=== PATIENT | female | born 1950 | race Caucasian/White ===

== ENCOUNTER 2017-02-18 08:00 | Day surgery (SDC) | payer MEDICARE ==
[2017-02-18] MEDS ORDERED: Lactated Ringer's 500 ML IV ONE (08:28)
[2017-02-18] MEDS ORDERED: Propofol 10 mg/ml Inj (20 ML) ONE (09:44)
[2017-02-18] MEDS ORDERED: Midazolam 2 MG/2 ML VIAL ONE (09:51)
[2017-02-18 10:10] VITALS: TEMP 96.9; O2SAT 97
[2017-02-18 10:24] VITALS: BP 130/68; PULSE 67; RESP 20
== END 2017-02-18 10:38 | disposition home or self-care (01) ==
LOC: H.ENDO 08:00
PROVIDERS: ATTEND Internal Medicine Gastroenterology
DX: K29.50 Unspecified chronic gastritis without bleeding (principal); B96.81 Helicobacter pylori [H. pylori] as the cause of diseases classified elsewhere; K21.9 Gastro-esophageal reflux disease without esophagitis; K44.9 Diaphragmatic hernia without obstruction or gangrene; K30 Functional dyspepsia
CPT/HCPCS: 43239; 88305; J2001; J2250; J2704; J7120